=== PATIENT | female | born 1935 | race Caucasian/White ===

== ENCOUNTER 2024-05-11 05:51 | Emergency (ER) | payer MEDICARE, OTHER ==
[2024-05-11 06:23] LABS: BILIRUBIN,URINE NEGATIVE (NEGATIVE); COLOR,URINE LIGHT YELLOW; GLUCOSE,URINE NEGATIVE (NEGATIVE); KETONES,URINE NEGATIVE (NEGATIVE); LEUKOCYTE ESTERASE,URINE TRACE (NEGATIVE); NITRITE,URINE NEGATIVE (NEGATIVE); OCCULT BLOOD,URINE LARGE (NEGATIVE); PROTEIN,URINE 100 mg/dL (NEGATIVE); UROBILINOGEN,URINE 0.2 E.U./dL (0.2-1.0)
[2024-05-11 06:33] LABS: APPEARANCE,URINE SLIGHTLY CLOUDY; RBC,URINE 20-30 /HPF; WBC,URINE 0-5 /HPF
[2024-05-11] MEDS: FLU (Fluad Triv) TS24-25 (65UP)/MF59C/PF 45 MCG/0.5 ML Syringe IM ONE (07:31)
== END 2024-05-11 07:20 ==
LOC: LL.ED 05:51
DX: N39.9 Disorder of urinary system, unspecified (principal); I10 Essential (primary) hypertension; Z88.2 Allergy status to sulfonamides; Z88.8 Allergy status to other drugs, medicaments and biological substances; Z90.710 Acquired absence of both cervix and uterus
CPT/HCPCS: 51798; 81001; 87086; 99283; 99284

== ENCOUNTER 2024-10-09 22:01 | Emergency (ER) | payer MEDICARE, OTHER ==
[2024-10-09 22:32] LABS: BASOPHILS ABSOLUTE AUTO 0.02 K/uL (0.00-0.20); BASOPHILS PERCENT AUTO 0.1 % (0.0-2.0); EOSINOPHILS ABSOLUTE AUTO 0.01 K/uL (0.00-0.50); EOSINOPHILS PERCENT AUTO 0.1 % (0.0-5.0); HEMATOCRIT 28.8 % (34.0-46.0); HEMOGLOBIN 9.9 g/dL (11.7-15.5); IMMATURE GRAN ABSOLUTE AUTO 0.12 10^3/uL (0.00-0.04); IMMATURE GRAN PERCENT AUTO 0.9 % (0.0-0.4); LYMPHOCYTES ABSOLUTE AUTO 2.83 K/uL (0.50-3.50); LYMPHOCYTES PERCENT AUTO 20.6 % (10.0-50.0); MEAN CORPUSCULAR HEMOGLOBIN 34.5 pg (28.2-33.3); MEAN CORPUSCULAR HGB CONC 34.4 g/dL (31.7-36.0); MEAN CORPUSCULAR VOLUME 100.3 fL (84.0-98.0); MONOCYTES ABSOLUTE AUTO 0.92 K/uL (0.00-1.00); MONOCYTES PERCENT AUTO 6.7 % (2.0-14.0); NEUTROPHILS ABSOLUTE AUTO 9.81 K/uL (1.40-7.00); NEUTROPHILS PERCENT AUTO 71.6 % (45.0-80.0); PLATELET COUNT,PLT 259 K/uL (150-350); RED BLOOD CELL COUNT 2.87 M/uL (3.77-5.09); RED CELL DISTRIBUTION WIDTH 12.8 % (11.2-14.1); WHITE BLOOD CELL COUNT,WBC 13.7 K/uL (4.0-10.2)
[2024-10-09] MEDS ORDERED: Naloxone 0.4 MG/ML SDV IVPUSH PRN (22:46)
[2024-10-09] MEDS: Sodium Chloride 0.9% 10 ML Syringe FLUSH PRN (22:50)
[2024-10-09] MEDS: HYDROmorphone 0.5 MG/0.5 ML Syringe IVPUSH PRN (22:50)
[2024-10-09 22:52] LABS: ALBUMIN 3.1 g/dL (3.4-5.0); ANION GAP 14.5 meq/L (7-15); BILIRUBIN TOTAL 0.4 mg/dL (0.2-1.0); CARBON DIOXIDE,CO2 23.8 mmol/L (21.0-32.0); CREATININE 1.61 mg/dL (0.51-1.17); EST CRCL DRUG DOSING (CG) 19.47 mL/min; POTASSIUM,K 4.3 mmol/L (3.5-5.1); PROTEIN TOTAL,TP 9.3 g/dL (6.4-8.2)
[2024-10-09 22:59] LABS: INR 1.1 (0.9-1.1); PROTHROMBIN TIME 10.9 SEC (9.0-11.1)
[2024-10-10] MEDS: HYDROmorphone 0.5 MG/0.5 ML Syringe IVPUSH PRN (00:56)
== END 2024-10-10 05:40 ==
LOC: LL.ED 22:01
DX: S72.142A Displaced intertrochanteric fracture of left femur, initial encounter for closed fracture (principal); D64.9 Anemia, unspecified; I10 Essential (primary) hypertension; E78.00 Pure hypercholesterolemia, unspecified; Z90.710 Acquired absence of both cervix and uterus; Z79.899 Other long term (current) drug therapy; Z88.2 Allergy status to sulfonamides; W19.XXXA Unspecified fall, initial encounter; Y92.000 Kitchen of unspecified non-institutional (private) residence as the place of occurrence of the external cause
CPT/HCPCS: 36415; 51702; 72170; 73700-LT; 80053; 85018; 85025; 85610; 85730; 96374; 96376; 99283; 99285-25

== ENCOUNTER 2024-10-14 11:59 | Inpatient (IN) | payer MEDICARE, OTHER ==
[2024-10-19] MEDS ORDERED: Acetaminophen 325 MG Tab PO PRN (16:11)
[2024-10-19] MEDS ORDERED: Alendronate 70 MG Tab PO SCH (16:15)
[2024-10-19] MEDS ORDERED: Polyethylene Glycol 3350 Powder 17 GM Packet PO PRN (16:24)
[2024-10-19] MEDS: atorvaSTATin 10 MG Tab PO SCH (19:03)
[2024-10-19] MEDS: Latanoprost 0.005% Ophth Soln 2.5 ML Bottle EYEBOTH SCH (19:04)
[2024-10-19] MEDS: oxyCODONE 5 MG Tab PO PRN (19:04)
[2024-10-19] MEDS: Metoprolol Tartrate 25 MG Tab PO SCH (19:04)
[2024-10-19] MEDS: Mirtazapine 15 MG Tab PO PRN (21:54)
[2024-10-20] MEDS: Cyclobenzaprine 10 MG Tab PO ONE (04:00)
[2024-10-20] MEDS: Calcium Carbonate/Vitamin D3 1500 MG-400 Units Tab PO SCH (08:39)
[2024-10-20] MEDS: Fish Oil/Omega-3 Fatty Acids 1 Gm Cap PO SCH (08:40)
[2024-10-20] MEDS: Multivitamin Tab PO SCH (08:40)
[2024-10-20] MEDS: Tamsulosin 0.4 MG Cap.ER PO SCH (08:40)
[2024-10-20] MEDS: Enoxaparin 30 MG/0.3 ML Syringe SUBCUT SCH (08:44)
[2024-10-20] MEDS: Ferrous Sulfate 325 MG Tab PO SCH (11:38)
[2024-10-20] MEDS: Acetaminophen 650 MG Tab.ER PO PRN (11:38)
[2024-10-20] MEDS: Ascorbic Acid 500 MG Tab PO SCH (11:38)
[2024-10-20] MEDS ORDERED: Lidocaine 4% Patch TOP PRN ×2 (16:32)
[2024-10-20] MEDS ORDERED: [UNRECOGNIZED DRUG - REMARK] TRDERM SCH (20:00)
[2024-10-20] MEDS ORDERED: [UNRECOGNIZED DRUG - REMARK] TRDERM SCH (20:00)
[2024-10-20] MEDS: Mirtazapine 15 MG Tab PO PRN (22:00)
[2024-10-21] MEDS ORDERED: LIDOCAINE 4% TOP SCH ×2 (08:00)
[2024-10-23 07:53] VITALS: BP 154/90
[2024-10-23 08:31] VITALS: PULSE 105
== END 2024-10-23 10:10 | DRG 948 ==
LOC: LL.MS 10-19 13:47
PROVIDERS: ADMIT Emergency Medicine; ATTEND Emergency Medicine
DX: R53.81 Other malaise (principal); S72.102 Unspecified trochanteric fracture of left femur; F03.90 Unspecified dementia, unspecified severity, without behavioral disturbance, psychotic disturbance, mood disturbance, and anxiety; D64.9 Anemia, unspecified; I10 Essential (primary) hypertension; H26.9 Unspecified cataract; Z66 Do not resuscitate; H91.90 Unspecified hearing loss, unspecified ear; H54.7 Unspecified visual loss; E78.00 Pure hypercholesterolemia, unspecified; K44.9 Diaphragmatic hernia without obstruction or gangrene; M19.90 Unspecified osteoarthritis, unspecified site; R42 Dizziness and giddiness; Z90.710 Acquired absence of both cervix and uterus; Z87.81 Personal history of (healed) traumatic fracture; Z79.899 Other long term (current) drug therapy
CPT/HCPCS: 87428-QW; 97110-GP; 97162-GP; 97530-GP; A9270-GY; J1650

== ENCOUNTER 2024-12-28 02:23 | Emergency (ER) | payer MEDICARE, OTHER ==
[2024-12-28 02:51] LABS: BASOPHILS ABSOLUTE AUTO 0.02 K/uL (0.00-0.20); BASOPHILS PERCENT AUTO 0.2 % (0.0-2.0); EOSINOPHILS ABSOLUTE AUTO 0.04 K/uL (0.00-0.50); EOSINOPHILS PERCENT AUTO 0.3 % (0.0-5.0); HEMATOCRIT 32.8 % (34.0-46.0); HEMOGLOBIN 10.9 g/dL (11.7-15.5); IMMATURE GRAN ABSOLUTE AUTO 0.05 10^3/uL (0.00-0.04); IMMATURE GRAN PERCENT AUTO 0.4 % (0.0-0.4); LYMPHOCYTES ABSOLUTE AUTO 3.51 K/uL (0.50-3.50); LYMPHOCYTES PERCENT AUTO 27.9 % (10.0-50.0); MEAN CORPUSCULAR HEMOGLOBIN 32.6 pg (28.2-33.3); MEAN CORPUSCULAR HGB CONC 33.2 g/dL (31.7-36.0); MEAN CORPUSCULAR VOLUME 98.2 fL (84.0-98.0); MONOCYTES ABSOLUTE AUTO 1.07 K/uL (0.00-1.00); MONOCYTES PERCENT AUTO 8.5 % (2.0-14.0); NEUTROPHILS ABSOLUTE AUTO 7.89 K/uL (1.40-7.00); NEUTROPHILS PERCENT AUTO 62.7 % (45.0-80.0); PLATELET COUNT,PLT 255 K/uL (150-350); RED BLOOD CELL COUNT 3.34 M/uL (3.77-5.09); RED CELL DISTRIBUTION WIDTH 16.9 % (11.2-14.1); WHITE BLOOD CELL COUNT,WBC 12.6 K/uL (4.0-10.2)
[2024-12-28 03:16] LABS: PROTHROMBIN TIME 10.4 SEC (9.0-11.1)
[2024-12-28 03:18] LABS: ALBUMIN 2.6 g/dL (3.4-5.0); ANION GAP 9.7 meq/L (7-15); BILIRUBIN TOTAL 0.3 mg/dL (0.2-1.0); CALCIUM 9.2 mg/dL (8.5-10.1); CARBON DIOXIDE,CO2 28.3 mmol/L (21.0-32.0); CREATININE 1.33 mg/dL (0.51-1.17); EST CRCL DRUG DOSING (CG) 25.73 mL/min; MAGNESIUM 1.8 mg/dL (1.8-2.4); PROTEIN TOTAL,TP 10.3 g/dL (6.4-8.2)
[2024-12-28 04:16] LABS: APPEARANCE,URINE TURBID (CLEAR); BILIRUBIN,URINE NEGATIVE (NEGATIVE); COLOR,URINE YELLOW (YELLOW); GLUCOSE,URINE NEGATIVE (NEGATIVE); KETONES,URINE NEGATIVE (NEGATIVE); LEUKOCYTE ESTERASE,URINE NEGATIVE (NEGATIVE); NITRITE,URINE NEGATIVE (NEGATIVE); OCCULT BLOOD,URINE LARGE (NEGATIVE); PH,URINE 6.5 (5.0-9.0); PROTEIN,URINE >=300 mg/dL (NEGATIVE); UROBILINOGEN,URINE 0.2 E.U./dL (0.2-1.0)
[2024-12-28 04:17] LABS: GRANULAR CASTS,URINE FEW; HYALINE CASTS,URINE FEW; RBC,URINE 40-50 /HPF; WBC,URINE 0-5 /HPF
[2024-12-28] MEDS: cloNIDine 0.1 MG Tab PO ONE (04:21)
== END 2024-12-28 05:45 ==
LOC: LL.ED 02:23
DX: I10 Essential (primary) hypertension (principal); R33.9 Retention of urine, unspecified; E78.00 Pure hypercholesterolemia, unspecified; Z90.710 Acquired absence of both cervix and uterus; Z88.8 Allergy status to other drugs, medicaments and biological substances; Z79.890 Hormone replacement therapy; Z79.899 Other long term (current) drug therapy
CPT/HCPCS: 36415; 51702; 71045; 80053; 81001; 83735; 84484; 85025; 85610; 93005; 93010; 99284; 99285; A9270-GY

== ENCOUNTER 2025-03-13 10:16 | Emergency (ER) | payer MEDICARE, OTHER | END 2025-03-13 10:40 | disposition home or self-care (01) | LOC: LL.ED 10:16 | DX: R04.0 Epistaxis (principal); I10 Essential (primary) hypertension; E78.00 Pure hypercholesterolemia, unspecified; Z90.710 Acquired absence of both cervix and uterus; Z79.899 Other long term (current) drug therapy; Z88.2 Allergy status to sulfonamides | CPT/HCPCS: 30901; 99283; A9270 ==

== ENCOUNTER 2025-04-21 13:23 | Emergency (ER) | payer MEDICARE, OTHER ==
[2025-04-21 13:56] LABS: BASOPHILS ABSOLUTE AUTO 0.02 K/uL (0.00-0.20); BASOPHILS PERCENT AUTO 0.2 % (0.0-2.0); EOSINOPHILS ABSOLUTE AUTO 0.16 K/uL (0.00-0.50); EOSINOPHILS PERCENT AUTO 1.7 % (0.0-5.0); IMMATURE GRAN ABSOLUTE AUTO 0.04 10^3/uL (0.00-0.04); IMMATURE GRAN PERCENT AUTO 0.4 % (0.0-0.4); LYMPHOCYTES ABSOLUTE AUTO 4.26 K/uL (0.50-3.50); LYMPHOCYTES PERCENT AUTO 44.5 % (10.0-50.0); MONOCYTES ABSOLUTE AUTO 0.69 K/uL (0.00-1.00); MONOCYTES PERCENT AUTO 7.2 % (2.0-14.0); NEUTROPHILS ABSOLUTE AUTO 4.41 K/uL (1.40-7.00); NEUTROPHILS PERCENT AUTO 46.0 % (45.0-80.0); PLATELET COUNT,PLT 302 K/uL (150-350); RED BLOOD CELL COUNT 3.03 M/uL (3.77-5.09); RED CELL DISTRIBUTION WIDTH 13.8 % (11.2-14.1); WHITE BLOOD CELL COUNT,WBC 9.6 K/uL (4.0-10.2)
[2025-04-21 14:16] LABS: ALANINE AMINOTRANSFERASE,ALT 9 U/L (12-78); ASPARTATE AMNIOTRANSFERASE,AST 22 U/L (15-37); BILIRUBIN TOTAL 0.2 mg/dL (0.2-1.0); BLOOD UREA NITROGEN,BUN 17 mg/dL (7-18); CARBON DIOXIDE,CO2 29.0 mmol/L (21.0-32.0); CHLORIDE,CL 97 mmol/L (98-107); CREATININE 1.46 mg/dL (0.51-1.17); GLUCOSE RANDOM 139 mg/dL (70-99); POTASSIUM,K 3.8 mmol/L (3.5-5.1); PROTEIN TOTAL,TP 11.4 g/dL (6.4-8.2); SODIUM,NA 131 mmol/L (136-145)
[2025-04-21 14:17] LABS: ESTIMATED GFR 35 mL/min (>=60)
[2025-04-21] MEDS ORDERED: Sodium Chloride 0.9% 10 ML Syringe FLUSH PRN (15:02)
[2025-04-21] MEDS ORDERED: Iopamidol 755 Mg/ML 100 ML Bottle IVPUSH STA (15:07)
[2025-04-21 16:50] VITALS: BP 169/83; PULSE 75
== END 2025-04-21 17:30 ==
LOC: LL.ED 13:23 → SUPCPDRO 13:23 → LL.ED 17:30
DX: R13.10 Dysphagia, unspecified (principal); H57.02 Anisocoria; I10 Essential (primary) hypertension; E78.00 Pure hypercholesterolemia, unspecified; Z88.2 Allergy status to sulfonamides; Z88.8 Allergy status to other drugs, medicaments and biological substances; Z79.890 Hormone replacement therapy; Z79.899 Other long term (current) drug therapy; Z90.710 Acquired absence of both cervix and uterus
CPT/HCPCS: 36415; 71046; 80053; 85025; 87426-QW; 87651; 99284

== ENCOUNTER 2025-06-14 20:43 | Inpatient (IN) | payer MEDICARE, OTHER ==
[2025-06-14] MEDS: Albuterol 0.083% 2.5 MG/3 ML Neb Soln NEB ONE (21:09)
[2025-06-14 21:10] LABS: BASOPHILS ABSOLUTE AUTO 0.03 K/uL (0.00-0.20); BASOPHILS PERCENT AUTO 0.1 % (0.0-2.0); EOSINOPHILS ABSOLUTE AUTO 0.12 K/uL (0.00-0.50); EOSINOPHILS PERCENT AUTO 0.6 % (0.0-5.0); IMMATURE GRAN ABSOLUTE AUTO 0.19 10^3/uL (0.00-0.04); IMMATURE GRAN PERCENT AUTO 0.9 % (0.0-0.4); LYMPHOCYTES ABSOLUTE AUTO 13.32 K/uL (0.50-3.50); LYMPHOCYTES PERCENT AUTO 63.0 % (10.0-50.0); MONOCYTES ABSOLUTE AUTO 1.18 K/uL (0.00-1.00); MONOCYTES PERCENT AUTO 5.6 % (2.0-14.0); NEUTROPHILS ABSOLUTE AUTO 6.29 K/uL (1.40-7.00); NEUTROPHILS PERCENT AUTO 29.8 % (45.0-80.0); PLATELET COUNT,PLT 419 K/uL (150-350); RED BLOOD CELL COUNT 2.60 M/uL (3.77-5.09); RED CELL DISTRIBUTION WIDTH 14.7 % (11.2-14.1); WHITE BLOOD CELL COUNT,WBC 21.1 K/uL (4.0-10.2)
[2025-06-14 21:31] LABS: LACTIC ACID 2.2 mmol/L (0.4-2.0)
[2025-06-14 21:35] LABS: ALANINE AMINOTRANSFERASE,ALT 21 U/L (12-78); ASPARTATE AMNIOTRANSFERASE,AST 25 U/L (15-37); BILIRUBIN TOTAL 0.1 mg/dL (0.2-1.0); BLOOD UREA NITROGEN,BUN 20 mg/dL (7-18); CARBON DIOXIDE,CO2 33.8 mmol/L (21.0-32.0); CHLORIDE,CL 97 mmol/L (98-107); CREATININE 1.32 mg/dL (0.51-1.17); GLUCOSE RANDOM 212 mg/dL (70-99); POTASSIUM,K 4.2 mmol/L (3.5-5.1); PRO B-TYPE NATRIUR PEPT,BNPPRO 2385 pg/mL (0-125); SODIUM,NA 132 mmol/L (136-145)
[2025-06-14 21:36] LABS: ESTIMATED GFR 39 mL/min (>=60); PROTEIN TOTAL,TP 12.4 g/dL (6.4-8.2)
[2025-06-14] MEDS ORDERED: LORazepam 2 MG/ML SDV IVPUSH PRN (22:15)
[2025-06-14 22:34] VITALS: BP 114/60; PULSE 63
[2025-06-14] MEDS: Sodium Chloride 0.9% 10 ML Syringe FLUSH PRN (22:39)
[2025-06-15] MEDS ORDERED: Sodium Chloride 0.9% 10 ML Syringe FLUSH PRN (00:04)
== END 2025-06-15 07:10 | disposition expired | DRG 951 ==
LOC: LL.ED 20:43 → LL.MS 21:55
PROVIDERS: ADMIT Physician Assistant; ATTEND Physician Assistant
PROC: 5A0935A Assistance with Respiratory Ventilation, Less than 24 Consecutive Hours, High Flow/Velocity Cannula (ICD-10-PCS; principal; 2025-06-14)
DX: Z51.5 Encounter for palliative care (principal); J96.01 Acute respiratory failure with hypoxia; A41.9 Sepsis, unspecified organism; I10 Essential (primary) hypertension; R65.20 Severe sepsis without septic shock; Z66 Do not resuscitate; H26.9 Unspecified cataract; Z79.890 Hormone replacement therapy; Z88.2 Allergy status to sulfonamides; H40.9 Unspecified glaucoma; H91.90 Unspecified hearing loss, unspecified ear; H54.7 Unspecified visual loss; E78.00 Pure hypercholesterolemia, unspecified; K44.9 Diaphragmatic hernia without obstruction or gangrene; N18.9 Chronic kidney disease, unspecified; I12.9 Hypertensive chronic kidney disease with stage 1 through stage 4 chronic kidney disease, or unspecified chronic kidney disease; M19.90 Unspecified osteoarthritis, unspecified site; D64.9 Anemia, unspecified; Z96.649 Presence of unspecified artificial hip joint; Z88.8 Allergy status to other drugs, medicaments and biological substances; Z79.899 Other long term (current) drug therapy; Z85.828 Personal history of other malignant neoplasm of skin; Z90.710 Acquired absence of both cervix and uterus; Z98.890 Other specified postprocedural states
CPT/HCPCS: 36415; 71045; 80053; 83605; 83735; 83880; 84484; 85025; 93005; 93010; 94761; 96374; 96375; 96376; 99285-25; A9270-GY; J1596; J2270